=== PATIENT | female | born 1945 ===

== ENCOUNTER 2017-02-03 19:59 | Emergency (ER) | payer MEDICARE ==
[2017-02-03 20:33] VITALS: BP 137/82; PULSE 74; RESP 20; TEMP 97.4
[2017-02-03 21:06] VITALS: O2SAT 98
[2017-02-03] MEDS ORDERED: DiphenhydrAMINE 50 mg/ml Inj IM STA (21:18)
[2017-02-03] MEDS ORDERED: DiphenhydrAMINE 50 mg/ml Inj ONE (21:34)
--- NOTE | 2017-02-03 21:51 | C.PDOC ---
History Of Present Illness 71 y/o female presents to ED with complaint of intermittent hives for 10 days. Patient states she was seen by senior it specialist and is currently on Zyrtec and Singulair. Patient states she took Benadryl earlier but had no relief. Otherwise, denies fever, chills, mouth or throat swelling, difficulty swallowing or breathing, shortness of breath, chest pain, dizziness, or other associated symptoms. Time Seen by Provider: 02/03/17 21:04 Chief Complaint (Nursing): Abnormal Skin Integrity History Per: Patient History/Exam Limitations: no limitations Onset/Duration Of Symptoms: Days, Intermittent Episodes Current Symptoms Are (Timing): Still Present Location Of Injury: Right: Abdomen, Chest, Forearm, Left: Abdomen, Chest, Forearm Quality Of Symptoms: Itching. denies: Draining Recent travel outside of the [place]: No Past Medical History Reviewed: Historical Data, Nursing Documentation, Vital Signs Vital Signs: Last Vital Signs Temp 97.4 F L 02/03/17 20:27 Pulse 74 02/03/17 20:27 Resp 20 02/03/17 20:27 BP 137/82 02/03/17 20:27 Pulse Ox 98 02/04/17 01:33 - Medical History PMH: Diverticulitis, HTN, TIA (2 years ago) Surgical History: Cholecystectomy Family History: States: Unknown Family Hx - Social History Hx Tobacco Use: No Hx Alcohol Use: No Hx Substance Use: No - Immunization History Hx Tetanus Toxoid Vaccination: No Hx Influenza Vaccination: No Hx Pneumococcal Vaccination: No Review Of Systems Except As Marked, All Systems Reviewed And Found Negative. Constitutional: Negative for: Fever, Chills ENT: Negative for: Mouth Swelling, Throat Swelling Cardiovascular: Negative for: Chest Pain Respiratory: Negative for: Cough, Shortness of Breath, Wheezing Gastrointestinal: Negative for: Nausea, Vomiting Skin: Positive for: Rash Neurological: Negative for: Dizziness Physical Exam - Physical Exam Appears: Non-toxic, No Acute Distress, Other (speaking in complete sentences) Skin: Warm, Dry, Rash (scattered hives to abdomen and chest, forearms ) Head: Atraumatic, Normacephalic Oral Mucosa: Moist Tongue: Normal Appearing, No Swelling Lips: Normal Appearing, No Swelling Gingiva: Normal Appearing, No Swelling Throat: Normal, No Erythema, No Exudate, No Drooling Neck: Supple Chest: Symmetrical Cardiovascular: Rhythm Regular Respiratory: Normal Breath Sounds, No Rales, No Rhonchi, No Stridor, No Wheezing Gastrointestinal/Abdominal: Soft, No Tenderness Back: Normal Inspection Extremity: Normal ROM, Capillary Refill (< 2 sec. ) Neurological/Psych: Oriented x3, Normal Speech, Normal Cognition ED Course And Treatment O2 Sat by Pulse Oximetry: 98 (RA) Pulse Ox Interpretation: Normal Progress Note: Treated with Benadryl and prednisone. On reassessment, patient is resting comfortably, and is in no acute distress. Patient reports improvement of urticaria, instructed to follow up with clinic/PMD within 1-2 days. 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 - Scribe Statement The provider has reviewed the documentation as recorded by the Roselia Harrell Provider Scribe Attestation: All medical record entries made by the Roselia were at my direction and personally dictated by me. I have reviewed the chart and agree that the record accurately reflects my personal performance of the history, physical exam, medical decision making, and the department course for this patient. I have also personally directed, reviewed, and agree with the discharge instructions and disposition.
== END 2017-02-03 21:58 | disposition home or self-care (01) ==
LOC: EDBD → C.ER 19:59
DX: L50.9 Urticaria, unspecified (principal)
CPT/HCPCS: 96372; 99283; J1200

== ENCOUNTER 2017-12-07 16:36 | Emergency (ER) | payer MEDICARE ==
[2017-12-07] MEDS ORDERED: Sodium Chloride 0.9% 500 ML IV ONE ×2 (17:07→17:28)
[2017-12-07 17:27] LABS: BASO % 0.8 % (0.0-2.0); EOS # 0.1 K/uL (0.0-0.7); EOS % 1.5 % (0.0-4.0); HEMOGLOBIN 13.1 g/dL (11.0-16.0); LYMPH # 1.8 K/uL (1.0-4.3); MEAN CELL VOLUME 90.9 fL (81.0-99.0); MEAN CORPUSCULAR HEMOGLOBIN 31.4 pg (27.0-31.0); MEAN CORPUSCULAR HGB CONC 34.5 g/dL (33.0-37.0); MONO # 0.5 K/uL (0.0-0.8); MONO % 8.5 % (0.0-10.0); NEUT # 3.6 K/uL (1.8-7.0); NEUT % 59.2 % (50.0-75.0); NRBC % 0.1 % (0.0-2.0); RBC 4.17 Mil/uL (3.80-5.20); WHITE BLOOD COUNT 6.1 K/uL (4.8-10.8)
[2017-12-07 17:51] LABS: ALB/GLOB RATIO 1.3 (1.0-2.1); ALBUMIN 3.9 g/dL (3.5-5.0); ALT/SGPT 31 U/L (9-52); AST/SGOT 23 U/L (14-36); BLOOD UREA NITROGEN 11 mg/dL (7-17); CALCIUM 8.8 mg/dl (8.6-10.4); GFR AFRICAN-AMERICAN > 60; GFR NON-AFRICAN AMERICAN > 60; LIPASE 50 U/L (23-300)
--- NOTE | 2017-12-07 18:44 | CT ---
EXAM: CT Head Without Intravenous Contrast EXAM DATE/TIME: 12/07/2017 5:55 PM CLINICAL HISTORY: 72 years old, female; Signs and symptoms; Dizziness; Additional info: Dizziness/vertigo TECHNIQUE: Axial computed tomography images of the head/brain without intravenous contrast. All CT scans at this facility use one or more dose reduction techniques, viz.: automated exposure control; ma/kV adjustment per patient size (including targeted exams where dose is matched to indication; i.e. head); or iterative reconstruction technique. Coronal and sagittal reformatted images were created and reviewed. COMPARISON: There are no prior studies for comparison. FINDINGS: Brain: Ventricles are normal in size and configuration. There is no midline shift. There is mild decreased attenuation in periventricular white matter.There are basal ganglia calcifications on the left. There are no intra-axial or extra-axial mass lesions or areas of hemorrhage. There are no abnormal fluid collections. Cox-white differentiation is maintained. Ventricles: See above. Bones: Cranial vault is intact. Soft tissues: unremarkable Sinuses: There is no acute sinusitis. Ears and mastoids: Middle ears and mastoids are unremarkable Orbits: Orbital contents are unremarkable. IMPRESSION: No acute intracranial abnormality
--- NOTE | 2017-12-07 19:04 | C.PDOC ---
Time Seen by Provider: 12/07/17 16:57 Chief Complaint (Nursing): Dizziness/Lightheaded History Per: Patient, Family Onset/Duration Of Symptoms: Hrs (1), Sudden Onset Current Symptoms Are (Timing): Still Present Associated Symptoms Preceding Syncopal Episode: Vertigo, Other (Nausea) Possible Causative Factor(s): Vertigo Fall Associated With With Symptoms: No Severity: Moderate Additional History Per: Prior Records - Symptoms Of CVA Recent Head Trauma: No Past Medical History Reviewed: Historical Data, Nursing Documentation, Vital Signs Vital Signs: Last Vital Signs Temp 97.8 F 12/07/17 16:52 Pulse 77 12/07/17 16:52 Resp 20 12/07/17 16:52 BP 134/79 12/07/17 16:52 Pulse Ox 95 12/07/17 19:04 - Medical History PMH: Anxiety, Diverticulitis, HTN, TIA (2 years ago) Surgical History: Cholecystectomy Family History: States: Unknown Family Hx - Social History Hx Tobacco Use: No Hx Alcohol Use: No Hx Substance Use: No - Immunization History Hx Tetanus Toxoid Vaccination: No Hx Influenza Vaccination: No Hx Pneumococcal Vaccination: No Review Of Systems Except As Marked, All Systems Reviewed And Found Negative. Constitutional: Negative for: Fever, Weakness Eyes: Negative for: Vision Change ENT: Negative for: Ear Pain, Ear Discharge Cardiovascular: Negative for: Chest Pain Respiratory: Negative for: Shortness of Breath Gastrointestinal: Positive for: Nausea, Abdominal Pain (epigastric discomfort). Negative for: Vomiting, Diarrhea Genitourinary: Negative for: Dysuria Musculoskeletal: Negative for: Neck Pain, Back Pain Skin: Negative for: Rash Neurological: Positive for: Dizziness. Negative for: Weakness, Numbness, Change in Speech, Confusion, Seizures, Headache Physical Exam - Physical Exam Appears: Non-toxic, No Acute Distress Skin: Normal Color, Warm, Dry, No Rash Head: Atraumatic, Normacephalic Eye(s): bilateral: PERRL, EOMI, Other (Nystagmus) Ear(s): Bilateral: Normal Neck: Normal ROM, Supple Cardiovascular: Rhythm Regular Respiratory: Normal Breath Sounds, No Accessory Muscle Use Gastrointestinal/Abdominal: Soft, No Tenderness, No Distention Back: No CVA Tenderness Extremity: Normal ROM Neurological/Psych: Oriented x3, Normal Speech, Normal Cognition, Normal Cranial Nerves, No Cerebellar Signs, Normal Motor, Normal Sensation ED Course And Treatment - Laboratory Results Result Diagrams: 12/07/17 17:24 12/07/17 17:24 Lab Interpretation: No Acute Changes ECG: Interpreted By Me, Viewed By Me ECG Rhythm: Sinus Rhythm ECG Interpretation: No Acute Changes Rate From EC O2 Sat by Pulse Oximetry: 95 Pulse Ox Interpretation: Normal - CT Scan/US CT head Other Rad Studies (CT/US): Read By Radiologist, Radiology Report Reviewed CT/US Interpretation: IMPRESSION: No acute intracranial abnormality Progress Note: Pt feels much better and wants to go home. Tolerating PO in the ED. Ambulatory. Reassessment Condition: Improved Progress - Interventions Interventions:: Observation, Intravenous fluid - Medications Administered Oral: Other (Meclizine) Intravenous: Antiemetic, H-2 hugo - Data Reviewed Data Reviewed: Lab, Diagnostic imaging, EKG, Old records - Patient Status Patient status: Mostly improved - Continuity of Care Discussed patient case with:: Patient, Family-HIPPA compliant, ED Nurse - Patient Plan Patient Plan: Discharge, F/U with PCP, Continue present meds Disposition Counseled Patient/Family Regarding: Studies Performed, Diagnosis, Need For Followup, Rx Given - Disposition Referrals: Muna López MD [Staff Provider] - Disposition: HOME/ ROUTINE Disposition Time: 19:09 Condition: IMPROVED Additional Instructions: Follow up with your doctor for further evaluation and treatment. Return to the ER if you develop weakness, numbness, vomiting, trouble walking or seeing, worsening of symptoms or if you have any other concerns. Prescriptions: Meclizine [Meclizine*] 25 mg PO Q6 PRN #30 tab PRN Reason: Dizziness Instructions: Vertigo (a Type of Dizziness) (DC) Forms: [employer] (Uzbek) - Clinical Impression Clinical Impression: Vertigo
[2017-12-07 19:24] VITALS: BP 134/80; PULSE 74; RESP 19; TEMP 97.4; O2SAT 99
--- NOTE | 2017-12-08 12:41 | CARD ---
APPROVED REPORT EKG Measurement Heart [id number] <Conclusion> Normal sinus rhythm Normal ECG
== END 2017-12-07 19:24 | disposition home or self-care (01) ==
LOC: C.ER 16:36
DX: R42 Dizziness and giddiness (principal); I10 Essential (primary) hypertension; Z86.73 Personal history of transient ischemic attack (TIA), and cerebral infarction without residual deficits
CPT/HCPCS: 70450; 80053; 82948; 83690; 84484; 85025; 93005; 96374; 96375; 99285; J2765; J7040

== ENCOUNTER 2018-11-13 10:47 | Outpatient (CLI) | payer MEDICARE | END 2018-11-13 10:48 | disposition home or self-care (01) | LOC: C.USIC 10:47 | DX: I65.23 Occlusion and stenosis of bilateral carotid arteries (principal) ==